=== PATIENT | male | born 1985 | race Caucasian/White ===

== ENCOUNTER 2021-05-20 11:28 | Emergency (ER) | payer OTHER ==
[2021-05-20 13:44] LABS: BASOPHIL 0 % (0-2); EOSINOPHIL 0 % (0-5); HCT 48.8 % (42.0-52.0); MCH 31.7 pg (25.0-31.0); MCHC 34.8 g/dL (32.0-36.0); MCV 90.9 fL (78.0-100.0); MONOCYTE 13.9 % (0-12); NEUTROPHIL 70.8 % (41-80); NRBC 0; PLT 185 K/uL (150-400); RBC 5.37 M/uL (4.70-6.00); RDW 12.1 % (11.5-14.0); WBC 3.7 K/uL (4.0-10.5)
[2021-05-20 14:16] LABS: BILIRUBIN - TOTAL 0.4 mg/dL (0.2-1.0); CREATININE 1.13 mg/dL (0.67-1.17); GLOBULIN (CALCULATION) 3.6 g/dL; POTASSIUM 3.7 mmol/L (3.5-5.1); TOTAL PROTEIN 7.6 g/dL (6.4-8.2)
[2021-05-20 14:32] LABS: BILIRUBIN NEGATIVE (NEGATIVE); BLOOD NEGATIVE Ery/uL (NEGATIVE); CLARITY CLEAR (CLEAR); COLOR YELLOW (YELLOW); GLUCOSE (U) NORMAL (NORMAL); LEUKOCYTES NEGATIVE Leu/uL (NEGATIVE); NITRITE NEGATIVE (NEGATIVE); PROTEIN TRACE (LOW) mg/dL (NEGATIVE); UROBILINOGEN 0.2 mg/dL (0.2-1.0)
[2021-05-20 14:32] LABS: LACTIC ACID 0.8 mmol/L (0.4-1.9)
[2021-05-20 14:39] LABS: BACTERIA TRACE; MUCOUS LARGE; URINARY RBC RARE
[2021-05-20 14:54] LABS: INFLUENZA A NAA NEGATIVE (NEGATIVE)
[2021-05-20 15:02] LABS: CORONAVIRUS 2019 SARS-COV-2 POSITIVE (NEGATIVE)
[2021-05-20] MEDS ORDERED: MEDROL 4MG DOSEP4 MG PO (15:16)
== END 2021-05-20 17:30 | disposition home or self-care (01) ==
LOC: FER 11:28
PROVIDERS: Nurse Practitioner Family
DX: U07.1 COVID-19 (principal); J12.82 Pneumonia due to coronavirus disease 2019; Z23 Encounter for immunization
CPT/HCPCS: 36415; 71045; 80053; 81001; 82728; 83605; 84145; 85025; 86140; 87040; J1100; J7030; M0243; Q0244; U0002